=== PATIENT | female | born 1985 | race Caucasian/White ===

== ENCOUNTER 2021-11-26 10:40 | Outpatient (CLI) | payer OTHER ==
[2021-11-26 11:14] LABS: Bilirubin Neg (Negative); Blood, Urine 10 (Negative); Clarity Clear (Clear); Glucose, Urine (Dipstick) Normal (Negative); Ketone, Urine Negative (Negative); Leukocyte Negative (Negative); Nitrite Negative (Negative); Protein, Urine (Dipstick) Negative (Neg-Trace); Specific Gravity, Urine 1.015 (1.002-1.036); Urobilinogen Normal mg/dL (Less than 2); pH, Urine 6.5 (5.0-9.0)
[2021-11-26 11:48] LABS: BHCG - Serum Negative (NEGATIVE); Pregs Control Bar Appear? YES (CONTROL BAR)
[2021-11-26 11:49] LABS: Hemoglobin 13.6 g/dL (12.0-15.5); Mean Corpuscular HGB CONC 32.5 g/dL (32.0-36.0); Mean Corpuscular Hemoglobin 30.1 pg (27.0-33.0); Mean Corpuscular Volume 92.7 fl (81.6-98.3); Mean Platelet Volume 11.3 fl (7.4-10.4); Platelet Count 213 10x3/uL (150-450); Pregs Control Background? CLEAR/WHITE (CLR/WHITE); RBC Distribution Width 12.6 % (11.5-14.5); Red Blood Cell (RBC) Count 4.52 10x6/uL (3.90-5.03); White Blood Cell (WBC) Count 5.6 10x3/uL (3.5-10.5)
== END 2021-11-26 10:41 | disposition home or self-care (01) ==
LOC: CSHLAB 10:40
PROVIDERS: ATTEND Obstetrics & Gynecology
DX: Z01.812 Encounter for preprocedural laboratory examination (principal); Z20.822 Contact with and (suspected) exposure to COVID-19; N93.9 Abnormal uterine and vaginal bleeding, unspecified; R93.89 Abnormal findings on diagnostic imaging of other specified body structures; N92.6 Irregular menstruation, unspecified
CPT/HCPCS: 81003; 84703; 85027; U0003; U0005

== ENCOUNTER → 2021-11-29 | Day surgery (SDC) | payer OTHER ==
[2021-11-26 11:19] VITALS: BMI 24.9
[~2021-11-29] MED LIST: Acetaminophen 500 MG TAB ONE; Bupivacaine PF 0.5% 30 ML VIAL ONE; CEFAZOLIN 1 GM VIAL ONE; Dexamethasone 4 mg/ml Vial ONE; EPINEPHrine 1 MG/ML AMP ONE; Fentanyl 100 MCG/2 ML VIAL ONE; Glycopyrrolate 0.2 MG/ML 5 ML SYRINGE ONE; HYDROcodone/Acetaminophen 7.5/325 mg Tablet ONE; Ketorolac Tromethamine 30 MG/ML VIAL ONE; Lidocaine 1% MPF 2 ML VIAL ONE; Lidocaine 1% PF 5 ML VIAL ONE; Methylene Blue 50 MG/10 ML AMPUL ONE; Midazolam HCl 2 mg/2 ml Vial ONE; Morphine 2 MG/ML VIAL ONE; Ondansetron PF 4 MG/2 ML Vial ONE; PROPOFOL 20 ML ONE; Rocuronium Bromide 10 MG/ML (10ML VIAL) ONE; Scopolamine 1.5 mg/72 hour Patch ONE; diphenhydrAMINE 50 MG/ML VIAL ONE
[2021-11-29 12:28] LABS: Hemoglobin 12.1 g/dL (12.0-15.5)
== END | disposition home or self-care (01) ==
LOC: CSHSDC 05:44
PROVIDERS: ATTEND Obstetrics & Gynecology
PROC: 0UT74ZZ Resection of Bilateral Fallopian Tubes, Percutaneous Endoscopic Approach (ICD-10-PCS; principal; 2021-11-29)
PROC: 0WBH4ZX Excision of Retroperitoneum, Percutaneous Endoscopic Approach, Diagnostic (ICD-10-PCS; principal; 2021-11-29)
PROC: 0UT94ZZ Resection of Uterus, Percutaneous Endoscopic Approach (ICD-10-PCS; principal; 2021-11-29)
PROC: 8E0W8CZ Robotic Assisted Procedure of Trunk Region, Via Natural or Artificial Opening Endoscopic (ICD-10-PCS; principal; 2021-11-29)
DX: N80.0 Endometriosis of uterus (principal); N88.8 Other specified noninflammatory disorders of cervix uteri; N80.2 Endometriosis of fallopian tube; N80.3 Endometriosis of pelvic peritoneum; N73.6 Female pelvic peritoneal adhesions (postinfective); D68.59 Other primary thrombophilia; Z79.899 Other long term (current) drug therapy; Z88.0 Allergy status to penicillin
CPT/HCPCS: 36415; 85014; 85018; 88305; 88307; 88342; C1776; J0171; J0690; J1100; J1200; J1885; J2250; J2270; J2405; J2704; J3010; Q9968; S0020

== ENCOUNTER 2022-10-01 12:56 | Outpatient (CLI) | payer OTHER | END 2022-10-01 12:57 | disposition home or self-care (01) | LOC: CSHMAMMO 12:56 | PROVIDERS: ATTEND Obstetrics & Gynecology | DX: Z12.31 Encounter for screening mammogram for malignant neoplasm of breast (principal) | CPT/HCPCS: 77063; 77067 ==